=== PATIENT | female | born 1940 | race Caucasian/White ===

== ENCOUNTER → 2016-07-25 | Outpatient (CLI) | payer OTHER ==
[~2016-07-25] MED LIST: AMITRIPTYLINE H10 MG PO; CYCLOBENZAPRINE10 MG PO; FLUOXETINE HCL10 MG PO; PERCOCET 5/31 TABLET PO; SKELAXIN800 MG PO; TRAMADOL HCL50 MG PO; TRICOR145 MG PO; Toprol XL PO; VALSARTAN-HCTZ1 EAC1 PO; WELCHOL625 MG PO
== END | disposition home or self-care (01) ==
DX: R13.10 Dysphagia, unspecified (principal)
CPT/HCPCS: 92611 GN; G8996 GN; G8997 GN; G8998 GN